=== PATIENT | male | born 1960 | race Caucasian/White ===

== ENCOUNTER 2018-12-26 08:32 | Outpatient (CLI) | payer OTHER ==
--- NOTE | 2018-12-26 11:33 | MRI ---
MRI CHEST WITHOUT IV CONTRAST: HISTORY: Strain of muscle and tendon of front wall of chest, pectoralis major muscle rupture. TECHNIQUE: Multiplanar, multisequence MRI examination of the right shoulder and anterior right chest was is perf ormed. FINDINGS: Abnormal post traumatic fluid noted within the region of the pectoralis muscle and myotendinous regio n. There is no intact pectoralis tendon insertion on the humerus. The retracted pectoralis tendon is retracted approximately 5 cm. IMPRESSION: Evidence for a complete retracted pectoralis insertional tear with approximately 5 cm of retraction w ith some post traumatic fluid and edema extending into the myotendinous region of the pectoralis musc le. POS: [facility]
== END 2018-12-26 08:33 | disposition home or self-care (01) ==
LOC: MRI 08:32
PROVIDERS: ATTEND Orthopaedic Surgery
DX: S29.011A Strain of muscle and tendon of front wall of thorax, initial encounter (principal); R60.0 Localized edema
CPT/HCPCS: 71550